=== PATIENT | male | born 1980 | race Caucasian/White ===

== ENCOUNTER 2025-04-22 19:18 | Emergency (ER) | payer MEDICAID, SELFPAY ==
--- OUTSIDE RECORDS SUMMARY | 2024-07-09 08:01 | XMS_ITS | Continuity of Care Document ---
Author Organization [facility] Address [address] [address] Phone Care Team Providers Care Instrumentation Designer Name Role Phone Eric Dacosta MD Unavailable [...] Procedures Procedure Date Home Visit E&m Estab Mod-md Video Visit [id number] Advance Directives Directive Yes / No Effective Date File Name No Information Encounters Encounter Description Practice Location Reason(s) For Visit Diagnoses Date Provider Providers Copied on Encounter Home Visit E&m Estab Mod-hi [facility], [address] [address], [place], [place], [id number] , [place] tel:[phone] [facility] [place] Detox f/u* (chief complaint) Moderate alcohol use disorderMethamphetami ne abuseMild major depressionPTSD (post-traumatic stress disorder)Elevated blood pressure reading 4 Olesya Reyes. [address], [place], [place], [id number] , [place]. tel: [phone] Video Visit [id number] [facility], [address], [place], [place], [id number] , [place] tel: [phone] [facility] [place] New RTC Admit* (chief complaint) Moderate alcohol use disorderMethamphetami ne abuseMild major depressionPTSD (post-traumatic stress disorder)Elevated blood pressure reading 4 Olesya Reyes. [address], [place], [place], [id number] , [place]. tel: [phone] Family History Family Member Type Diagnosis Age [...] Description: This patient is a resident of [facility] who was admitted for substance abuse [...] f/u* This patient is a resident of [facility] who was admitted for substance abuse [...] Admit* This patient is recently admitted to [facility] for treatment of substance abuse. This [...] Additional Infor mation D/C clonidine Related to [place] jaz blood pressure reading Transfer patient to a lower level of care tomorrowMay continue with current meds as listed Related to Moderate alcohol use disorder Clonidine prn Related to [place] jaz blood pressure reading Admit to [facility] for an observational detoxVital Signs per routine.CounselingRandom UDS 1-2 x a week prn. Fax copy of any positive results to office [phone]. Order void after 10 days. No confirmations [...]
[2025-04-22 19:27] VITALS: BP 135/73; PULSE 85; RESP 16; TEMP 36.8; O2SAT 95; BMI 25.7
--- NOTE | 2025-04-22 19:28 | ED.GENADULT ---
HPI - General Adult General Chief complaint: Neuro Symptoms/Deficit Stated complaint: lost prednisone prescription Time Seen by Provider: 04/22/25 19:36 Source: patient Mode of arrival: ambulatory Limitations: no limitations History of Present Illness ED Provider: Gail Gilliland NP HPI narrative: Patient is a 44-year-old male presents emergency department for evaluation. Reporting acute on chronic bilateral upper extremity nerve pain. Reports a history of cervical arthritis with radiculopathy, bilateral carpal tunnel. Has been dealing with these pains for approximately 10 years. Has previously had success with nitro modalities, particularly acupuncture but can not afford to do. He was recently seen at an urgent care on 04/14/2025 and states he was given a prescription for prednisone which was helping, however he was only able to take this for 1 day and then he lost the prescription. He reports going to [facility] after getting the prescription, was given referral for physical therapy which he is due to start soon. He is requesting a prescription for steroids as this has been beneficial for him in the past able to use will realistic modalities. He denies any recent precipitating injury that may have provoked the pain or made things worse. He additionally is requesting bilateral volar wrist splints as has lost his, and they are helpful at night. Related Data Previous Rx's ?Medication ?Instructions ?Recorded methylprednisolone 4 mg tablets in 4 mg PO DAILY #21 ea 04/22/25 a dose pack (Medrol (Tom)) Allergies Allergy/AdvReac Type Severity Reaction Status Date / Time No Known Allergies Allergy Verified 04/22/25 19:27 Review of Systems Review of Systems: Yes all other systems are reviewed and are negative PMFSH Past Medical History Attestation statement: The following information was validated with the patient. Source: old records reviewed Physical Exam ED Exam Exam: Appearance: Alert.?Oriented to person, place and time. No acute distress.?Normal affect. Neck: Normal inspection.? Neck supple.??No midline cervical spine tenderness, step-offs, deformities. No cervical adenopathy. Full range of motion. CVS: Heart sounds normal. Normal heart rate and rhythm.? Pulses normal.?? Respiratory: No respiratory distress.? Lung sounds clear to auscultation bilaterally?? Skin: Skin warm and dry.? Normal skin color.? Extremities: No extremity edema.? Positive Phalen sign bilaterally. Neuro: Moves all extremities spontaneously. Sensation intact bilaterally. No focal neuro deficits. Ambulates with normal steady gait. Vital Signs: Vital Signs - 24 hr 04/22/25 19:27 Temperature 98.2 F Pulse Rate 85 Respiratory Rate 16 Blood Pressure 135/73 Pulse Oximetry 95 Oxygen Delivery Method Room Air BMI result Body Mass Index 25.7 Medical Decision Making Medical Decision Making [facility] Narrative: Patient is a 44-year-old male presents emergency department for evaluation endorsing history of arthritis, radiculopathy, carpal tunnel, acute on chronic bilateral upper extremity ?nerve pain?, as per HPI. He feel strongly about receiving a prescription for oral corticosteroid as this is his proven beneficial to him in the past, unfortunately had loss of prescription that was given to him from urgent care recently by his account. He is not interested in any imaging modality, based on physical examination I do not feel as though there is emergent CT imaging or XR imaging required. Advised he should follow up outpatient with primary care provider, consider having EMG studies accordingly potentially seen and neck/back specialist, and physical therapy as already being coordinated from [facility]. He was given return precautions. All questions answered. Stable for discharge Differential Diagnosis Differential Diagnoses: The differential diagnosis associated with the presentation includes (Cervical radiculopathy, carpal tunnel syndrome, lateral epicondylitis, medial epicondylitis) External Record Review External record reviewed: Outpatient record Tests considered The following testing was considered but not selected: See narrative above Prescription Management I considered prescription management with: Other (Medrol Dosepak) Chronic Conditions Patient?s care impacted by: Other (See narrative above) Discharge Plan Discharge Clinical Impression: Cervical radiculopathy Carpal tunnel syndrome Qualifiers: Laterality: bilateral Qualified Code(s): G56.03 - Carpal tunnel syndrome, bilateral upper limbs Patient Disposition: Home, Self-Care Instructions: Cervical Radiculopathy (ED) Additional Instructions: Evaluated in the emergency department for complaints of nerve pain to the bilateral upper extremities, chronic in nature for you. Reported that you were recently given a steroid prescription unfortunately had lost this after 1 day of taking it. I will send a prescription for oral steroids to the pharmacy, please be certain that you do not wheezes, take daily with food to prevent stomach upset. It is not recommended to take [id number]-[id number] NSAIDs; ibuprofen/ Motrin/Advil, naproxen/Aleve, or aspirin while taking steroids as this can cause further stomach upset Follow-up outpatient with physical therapy as has been coordinated from [facility]. Establish local care with a new primary care provider. Prescriptions: New methylprednisolone [Medrol (Tom)] 4 mg tablets,dose pack 4 mg PO DAILY Qty: 21 0RF Referrals: [facility] Family Medicine [Provider Group, Family Practice] [facility] Primary Care, [place] [Provider Group, Internal Medicine] [facility] Primary Care, [place] [Provider Group, Internal Medicine] [facility] [Physician, Medical] Andreia Browne CNP [Primary Care Provider, Internal Medicine] Print Language: Albanian
[2025-04-22 20:01] VITALS: BP 135/73; PULSE 85; RESP 16; TEMP 36.8; O2SAT 95
--- OUTSIDE RECORDS SUMMARY | 2025-04-22 20:01 | XMS_ITS ---
Author Name [facility] Organization Unknown Results Test Name/Text Value Interpretation Date Range Source Anion Gap3 SerPl-sCnc 11.0 Normal 01/18/2024 7 - 17 [facility] Calcium SerPl-mCnc 8.9 mg/dL Normal 01/18/2024 8.8 - 10.2 [facility] HCO3 SerPl-sCnc 22.0 mmol/L Normal 01/18/2024 20 - 30 [facility] Potassium SerPl-sCnc 4.6 mmol/L Normal 01/18/2024 3.3 - 5 .3 [facility] GFR/BSA.pred SerPlBld BKD-BEL-CtWGjf >60.0 mL/min/1.73m2 Normal 01/18/2024 - [facility] Glucose SerPl-mCnc 132.0 mg/dL Above high normal 01/18/2024 70 - 100 [facility] Sodium SerPl-sCnc 137.0 mmol/L Normal 01/18/2024 136 - 14 4 [facility] BUN/Creat SerPl 23.6 Above high normal 01/18/2024 8 - 2 3 [facility] BUN SerPl-mCnc 25.0 mg/dL Above high normal 01/18/2024 6 - 2 0 [facility] Creat SerPl-mCnc 1.06 mg/dL Normal 01/18/2024 0.4 - 1.3 [facility] Chloride SerPl-sCnc 104.0 mmol/L Normal 01/18/2024 98 - 1 07 [facility] RDW RBC Auto-Rto 12.0 % Normal 01/18/2024 11 - 15 [facility] Monocytes/leuk NFr Bld Auto 8.4 % Normal 01/18/2024 4 - 12 [facility] nRBC/100 WBC Bld Auto-Rto 0.0 % Normal 01/18/2024 0 - 1 [facility] Hgb Bld-mCnc 15.3 g/dL Normal 01/18/2024 13.2 - 17.1 [facility] Eosinophil # Bld Auto 0.21 x 1000/uL Normal 01/18/2024 0 - 1 [facility] Monocytes # Bld Auto 0.5 x 1000/uL Normal 01/18/2024 0 - 1 [facility] nRBC # Bld Auto 0.0 x 1000/uL Normal 01/18/2024 0 - 1 [facility] Lymphocytes # Bld Auto 2.75 x 1000/uL Normal 01/18/2024 0 .6 - 3.7 [facility] Platelet # Bld Auto 261.0 x1000/uL Normal 01/18/2024 150 - 420 [facility] Imm Granulocytes # Bld Auto 0.01 x 1000/uL Normal 01/18/2024 0 - 0.3 [facility] Basophils/leuk NFr Bld Auto 0.3 % Normal 01/18/2024 0 - 1.4 [facility] Lymphocytes/leuk NFr Bld Auto 46.5 % Normal 01/18/2024 17 - 50 [facility] RBC # Bld Auto 4.75 M/uL Normal 01/18/2024 4 - 6 [facility] MCH RBC Qn Auto 32.2 pg Normal 01/18/2024 27 - 33 [facility] Imm Granulocytes/leuk NFr Bld Auto 0.2 % Normal 01/18/2024 0 - 1 [facility] Neutrophils # Bld Auto 2.43 x 1000/uL Normal 01/18/2024 2 - 7.6 [facility] Hct VFr Bld Auto 43.4 % Normal 01/18/2024 38.5 - 50 [facility] Neutrophils/leuk NFr Bld Auto 41.1 % Normal 01/18/2024 39 - 72 [facility] Eosinophil/leuk NFr Bld Auto 3.5 % Normal 01/18/2024 0 - 5 [facility] MCHC RBC Auto-mCnc 35.3 g/dL Normal 01/18/2024 31 - 36 [facility] Basophils # Bld Auto 0.02 x 1000/uL Normal 01/18/2024 0 - 1 [facility] MCV RBC Auto 91.4 fL Normal 01/18/2024 80 - 100 [facility] T WBC # Bld Auto 5.9 x1000/uL Normal 01/18/2024 4 - 11 [facility] PMV Bld Auto 10.6 fL Normal 01/18/2024 8 - 12 [facility] T LDL Note See Note Normal 07/21/2023 [facility] CHOLESTEROL.IN LDL:MCNC:PT:SER/PLAS:Q N:CALCULATED 194.0 mg/dL Above high normal 07/21/2023 - [facility] CHOLESTEROL.IN HDL:MCNC:PT:SER/PLAS:Q N: 78.0 mg/dL Normal 07/21/2023 - [facility] TRIGLYCERIDE:MCNC:PT:S ER/PLAS:QN: 156.0 mg/dL Above high normal 07/21/2023 - [facility] CHOLESTEROL:MCNC:PT:SE R/PLAS:QN: 303.0 mg/dL Above high normal 07/21/2023 - [facility] eGFR CKD-EPI 2020 101.0 mL/min/1.73 m2 Normal 07/21/2023 - [facility] ANION GAP 3:SCNC:PT:SER/PLAS:QN: 16.0 mmol/L Normal 07/21/2023 10 - 19 [facility] BICARBONATE:SCNC:PT:SE R/PLAS:QN: 23.0 mmol/L Normal 07/21/2023 22 - 29 [facility] POTASSIUM:SCNC:PT:SER/ PLAS:QN: 4.7 mmol/L Normal 07/21/2023 3.5 - 5.3 [facility] ALBUMIN:MCNC:PT:SER/PL :QN:BCG 4.9 g/dL Normal 07/21/2023 3.7 - 5.1 [facility] UREA NITROGEN:MCNC:PT:SER/P LAS:QN: 13.0 mg/dL Normal 07/21/2023 6 - 23 [facility] BILIRUBIN:MCNC:PT:SER/ PLAS:QN: 0.5 mg/dL Normal 07/21/2023 0 - 1.2 [facility] PROTEIN:MCNC:PT:SER/PL :QN: 7.1 g/dL Normal 07/21/2023 6.3 - 7.9 [facility] CREATININE:MCNC:PT:SER /PLAS:QN: 0.97 mg/dL Normal 07/21/2023 0.67 - 1.23 [facility] ALBUMIN/GLOBULIN:MRTO: PT:SER/PLAS:QN: 2.2 Normal 07/21/2023 1.1 - 2.5 [facility] ASPARTATE AMINOTRANSFERASE:CCNC: PT:SER/PLAS:QN:WITH P-5'-P 24.0 U/L Normal 07/21/2023 10 - 50 [facility] ALKALINE PHOSPHATASE:CCNC:PT:SE R/PLAS:QN: 91.0 U/L Normal 07/21/2023 40 - 130 [facility] GLUCOSE:MCNC:PT:SER/PL :QN: 103.0 mg/dL Above high normal 07/21/2023 70 - 99 [facility] GLOBULIN:MCNC:PT:SER:Q N:CALCULATED 2.2 g/dL Normal 07/21/2023 1.8 - 3.4 [facility] CALCIUM:MCNC:PT:SER/PL :QN: 9.9 mg/dL Normal 07/21/2023 8.6 - 10.4 [facility] SODIUM:SCNC:PT:SER/CORBY S:QN: 140.0 mmol/L Normal 07/21/2023 135 - 145 [facility] CHLORIDE:SCNC:PT:SER/P LAS:QN: 101.0 mmol/L Normal 07/21/2023 97 - 107 [facility] ALANINE AMINOTRANSFERASE:CCNC: PT:SER/PLAS:QN:WITH P-5'-P 33.0 U/L Normal 07/21/2023 10 - 62 [facility] ERYTHROCYTES.NUCLEATED /100 LEUKOCYTES:RATIO:PT:BL D:QN:AUTOMATED COUNT 0.0 /100(WBCs) Normal 07/21/2023 [facility] LYMPHOCYTES/100 LEUKOCYTES:NFR:PT:BLD: QN:AUTOMATED COUNT 39.3 % Normal 07/21/2023 20 - 45 [facility] MONOCYTES/100 LEUKOCYTES:NFR:PT:BLD: QN:AUTOMATED COUNT 7.0 % Normal 07/21/2023 4 - 12 [facility] GRANULOCYTES.IMMATURE/ 100 LEUKOCYTES:NFR:PT:BLD: QN:AUTOMATED COUNT 0.2 % Normal 07/21/2023 0 - 1 [facility] MONOCYTES:NCNC:PT:BLD: QN:AUTOMATED COUNT 0.36 x10(9)/L Normal 07/21/2023 0 - 1 [facility] BASOPHILS/100 LEUKOCYTES:NFR:PT:BLD: QN:AUTOMATED COUNT 0.6 % Normal 07/21/2023 0 - 2 [facility] BASOPHILS:NCNC:PT:BLD: QN:AUTOMATED COUNT 0.03 x10(9)/L Normal 07/21/2023 0 - 0.2 [facility] GRANULOCYTES.IMMATURE: NCNC:PT:BLD:QN:AUTOMAT ED COUNT 0.01 x10(9)/L Normal 07/21/2023 0 - 0.1 [facility] EOSINOPHILS:NCNC:PT:BL D:QN:AUTOMATED COUNT 0.14 x10(9)/L Normal 07/21/2023 0 - 0.5 [facility] NEUTROPHILS:NCNC:PT:BL D:QN:AUTOMATED COUNT 2.58 x10(9)/L Normal 07/21/2023 2 - 7.5 [facility] LYMPHOCYTES:NCNC:PT:BL D:QN:AUTOMATED COUNT 2.02 x10(9)/L Normal 07/21/2023 1 - 4 [facility] EOSINOPHILS/100 LEUKOCYTES:NFR:PT:BLD: QN:AUTOMATED COUNT 2.7 % Normal 07/21/2023 0 - 7 [facility] NEUTROPHILS/100 LEUKOCYTES:NFR:PT:BLD: QN:AUTOMATED COUNT 50.2 % Normal 07/21/2023 40 - 75 [facility] ERYTHROCYTE MEAN CORPUSCULAR HEMOGLOBIN CONCENTRATION:MCNC:PT: RBC:QN:AUTOMATED COUNT 35.9 g/dL Normal 07/21/2023 31 - 36 [facility] LEUKOCYTES:NCNC:PT:BLD :QN:AUTOMATED COUNT 5.1 x10(9)/L Normal 07/21/2023 3.5 - 10 [facility] HEMATOCRIT:VFR:PT:BLD: QN:AUTOMATED COUNT 48.5 % Normal 07/21/2023 38 - 50 [facility] ERYTHROCYTE MEAN CORPUSCULAR VOLUME:ENTVOL:PT:RBC:Q N:AUTOMATED COUNT 90.3 fL Normal 07/21/2023 80 - 99 [facility] ERYTHROCYTE DISTRIBUTION WIDTH:RATIO:PT:RBC:QN: AUTOMATED COUNT 12.7 % Normal 07/21/2023 11.5 - 15 [facility] ERYTHROCYTE MEAN CORPUSCULAR HEMOGLOBIN:ENTMASS:PT: RBC:QN:AUTOMATED COUNT 32.4 pg Normal 07/21/2023 25 - 34 [facility] PLATELETS:NCNC:PT:BLD: QN:AUTOMATED COUNT 247.0 x10(9)/L Normal 07/21/2023 150 - 400 [facility] ERYTHROCYTE DISTRIBUTION WIDTH:ENTVOL:PT:RBC:QN :AUTOMATED COUNT 41.1 fL Normal 07/21/2023 35 - 47 [facility] HEMOGLOBIN:MCNC:PT:BLD :QN: 17.4 g/dL Above high normal 07/21/2023 13.5 - 17 [facility] PLATELET MEAN VOLUME:ENTVOL:PT:BLD:Q N:AUTOMATED COUNT 10.0 fL Normal 07/21/2023 9.3 - 13 [facility] ERYTHROCYTES:NCNC:PT:B LD:QN:AUTOMATED COUNT 5.37 x10(12)/L Normal 07/21/2023 4.3 - 5.7 [facility] N History of Medication Use Medication Directions Dispensed Refills Start Date End Date Stat us No Known Medications No Known Medications 07/16/2023 completed Problems Problem Status Onset Date Problem Type Date of Resoluti on Source Puncture wound of right thumb, initial encounter active EncounterDiagnosisAct H HCCT Immunizations Vaccine Date Source Lot Number Status Tdap 11/24/2023 [facility] [id number] completed Encounters Encounter Type Encounter Reason Primary Diagnosis Location Date Emergency Injury, other and unspecified, finger Injury, other and unspecified, finger [facility] 01/27/2024 Emergency Cervicalgia Cervicalgia [facility] 01/17/2024 Ambulatory Puncture wound without foreign body of right thumb without damage to nail, initial encounter Puncture wound without foreign body of right thumb without damage to nail, initial encounter [facility] 11/24/2023 Ambulatory new pt per Dr. Mane [facility] 08/06/2023 Emergency Unspecified asthma with (acute) exacerbation Unspecified asthma with (acute) exacerbation [facility] 08/03/[address] [facility] 07/21/2023 Ambulatory EST CARE UNAWARE OF ANY UNDERLYING HEALTH CONDITIONS [facility] 07/16/2023 Care Team Organization Name Specialty Phone Email Start Date End [facility] 02/01/2025 [facility] 12/08/2024 03/05/20 [facility] 01/19/2024 02/23/2024 [facility] 01/18/20 24 02/25/2024 [facility] 01/18/20 [facility] PCP [facility] [facility] 11/24/2023 12/07/2024 [facility] 08/23/2023 [facility] 08/03/2023 01/25/2025 [facility] 08/03/2023 08/03/2023 [facility] 07/21/2001/11/2025 [facility] 07/17/2023 [facility] Primary Care 07/16/2023 07/16/20 [facility] 07/15/2023 07/16/[address] [facility] NO PCP Primary Care 02/20/2023 02/20/2023
--- OUTSIDE RECORDS SUMMARY | 2025-04-22 20:01 | XMS_ITS | Clinical Summary ---
Author Organization [facility] [address] ity Address [address] [place] [address] Care Team Providers Care Kiln Transfer Operator Name Role Phone Unavailable Primary Care Provider Unavailabl e Social History Tobacco Use Types Packs/Day Years Used Date Smoking Tobacco: Never Assessed Sex and Gender Information Value Date Recorded Sex Assigned at Not on file Legal Sex Male 9:00 PM EST Gender Identity Not on file Sexual Orientation Not on file Obstetrics History Plan of Treatment Health Maintenance Due Date Last Done Comments DTaP,Tdap,and Td Vaccines (1 - Tdap) 2000 Hepatitis B Vaccines (1 of 3 - 19+ 3-dose series) 2000 Cholesterol Screening (Lipid Panel) 10/16/2023 HIV Screening 10/16/2023 Hepatitis C Screening 10/16/2023 Social Influencers of Health Screening 10/16/2023 COVID-19 Vaccine ( - 2023-2 5 season) 2024 Depression Screening 09/21/2024 Influenza Vaccine (#1) 2025 HIB Vaccines Aged Out No longer eligi ble based on patient's age to complete this topic HPV Vaccines Aged Out No longer eligi ble based on patient's age to complete this topic Hepatitis A Vaccines Aged Out No long er eligible based on patient's age to complete this topic IPV Vaccines Aged Out No longer eligi ble based on patient's age to complete this topic MMR Vaccines Aged Out No longer eligi ble based on patient's age to complete this topic Meningococcal ACWY Vaccine Aged Out N o longer eligible based on patient's age to complete this topic Meningococcal B Vaccine Aged Out No l onger eligible based on patient's age to complete this topic Pneumococcal Vaccine: Pediat rics (0 to 5 Years) and At-Risk Patients (6 to 49 Years) Aged Out No longer eligible b ased on patient's age to complete this topic RSV Immunization Patients Un artie 20 months Aged Out No longer eligible b ased on patient's age to complete this topic Varicella Vaccines Aged Out No longer eligible based on patient's age to complete this topic
--- OUTSIDE RECORDS SUMMARY | 2025-04-22 20:01 | XMS_ITS | Clinical Summary ---
Author Organization [facility] Address [address] [place] [address] Care Team Providers Care Joint Runner Name Role Phone Unavailable Primary Care Provider Unavailabl e Medications Medication Sig Dispensed Refills Start Date End Date Status albuterol 108 (90 Base) MCG/ACT inhaler Inhale 2 puffs into the lungs every 6 (six) hours as needed. 8 g 0 08/03/2023 Active guaiFENesin (ROBITUSSIN) 100 MG/5ML liquid Take 10 mL (200 mg total) by mouth 3 (three) times a day as needed for cough. 120 mL 0 08/03/2023 Active Social History Tobacco Use Types Packs/Day Years Used Date Smoking Tobacco: Never Assessed Sex and Gender Information Value Date Recorded Sex Assigned at Not on file Gender Identity Not on file Sexual Orientation Not on file Job Start Date Occupation Industry Not on file Not on file Not on file Last Filed Vital Signs Vital Sign Reading Time Taken Comments Blood Pressure 121/83 08/03/2023 4:30 AM EST Pulse 114 08/03/2023 4:30 AM EST Temperature 36.6 C (97.8 F) 08/03/2023 4:30 AM EST Respiratory Rate 17 08/03/2023 4:30 AM EST Oxygen Saturation 97% 08/03/2023 4:30 AM EST Inhaled Oxygen Concentration - - Weight - - Height - - Body Mass Index - - Plan of Treatment Health Maintenance Due Date Last Done Comments Hepatitis B Vaccines (1 of 3 - 3-dose series) 1981 Hepatitis C Screening 1981 COVID-19 Vaccine (#1) 03/07/1982 Depression Screening 1993 Preventative Health Evaluation 1999 Influenza Vaccine (#1) 2025 DTap / Tdap / Td (2 - Td or Tdap) 10/28/2025 016 Pneumococcal Vaccine Aged Out No long er eligible based on patient's age to complete this topic RSV Ped < 20 months Aged Out No longe r eligible based on patient's age to complete this topic
--- OUTSIDE RECORDS SUMMARY | 2025-04-22 20:01 | XMS_ITS | Clinical Summary ---
Author Organization [facility] [address] [facility] Address [address] [place] [phone] Phone Care Team Providers Care Casino Duty Manager Name Role Phone Pcp, Does Not Have A Primary Care Provider Unava ilable Allergies No known active allergies Medications chlorzoxazone (LORZONE) 750 mg Tab Take 750 mg by mouth 3 (three) times daily. 90 tablet 3 6 Active albuterol (PROVENTIL HFA) 90 mcg/actuation HFA inhaler Inhale 2 puffs into the lungs every 4 (four) hours as needed for Wheezing. 1 Inhaler 6 Active predniSONE (DELTASONE) 20 MG tablet Take 3 tabs ( 60 ) mg every morning for the next 5 days 15 tablet 6 Active azithromycin (ZITHROMAX Z-DUSTIN) 250 MG Tab Take 2 tabs today and 1 tab for the next 4 days 6 each 6 Active umeclidinium-vi lanterol 62.5-25 mcg/actuation DsDv Inhale 1 Inhaler into the lungs daily. 60 each 4 6 Active PROAIR RESPICLICK 90 mcg/actuation Inhale 2 puffs into the lungs every 4 (four) hours. 1 each 5 6 Active albuterol (PROVENTIL HFA) 90 mcg/actuation HFA inhaler Inhale 2 puffs into the lungs every 6 (six) hours as needed for Wheezing. 1 Inhaler 11 6 Active VENTOLIN HFA 90 mcg/actuation HFAA Inhale 2 puffs into the lungs every 4 (four) hours as needed. 18 g 4 6 Active oxyCODONE-aceta minophen (PERCOCET) 5-325 mg per tablet Take 1 tablet by mouth every 4 (four) hours as needed for pain (moderate/sever e pain) for up to 2 doses. Dispensed from Emergency Department 2 tablet 4 Active ibuprofen (ADVIL,MOTRIN) 600 mg tablet Take 1 tablet (600 mg total) by mouth every 6 (six) hours as needed for pain. 60 tablet 4 Active acetaminophen (TYLENOL) 325 mg tablet Take 2 tablets (650 mg total) by mouth every 6 (six) hours as needed for pain. 30 tablet 4 Active Immunizations Immunization Administration Dates Next Due Tdap 10/28/2015 Social History Tobacco Use Types Packs/Day Years Used Date Smoking Tobacco: Never Tobacco Cessation:Counseling Given: Not Answered Interpersonal Safety Answer Date Record ed Is there anyone in your life that is hurting or threatening you in anyway? no 01/27/2024 Physical Indicators of Abuse No evidence of phys ical abuse 01/27/2024 Sex and Gender Information Value Date Recorded Sex Assigned at Not on file Legal Sex Male 12:17 AM EST Gender Identity Not on file Sexual Orientation Not on file Last Filed Vital Signs Vital Sign Reading Time Taken Comments Blood Pressure 168/108 01/27/2024 9:15 AM EDT Pulse 94 01/27/2024 9:15 AM EDT Temperature 36.1 C (96.9 F) 01/27/2024 9:15 AM EDT Respiratory Rate 17 01/27/2024 9:15 AM EDT Oxygen Saturation 94% 01/27/2024 9:15 AM EDT Inhaled Oxygen Concentration - - Weight 95.3 kg (210 lb 1.6 oz) 02/03/2024 12:07 PM EDT Height 154.9 cm (5' 1 ) 02/03/2024 12:07 PM EDT Body Mass Index 39.7 02/03/2024 12:07 PM EDT Plan of Treatment Health Maintenance Due Date Last Done Comments HIV screening 1994 Hepatitis C screening 1999 Lipid disorder screening 2021 Covid-19 vaccine series (1 - 2024-25 season) 2024 Influenza vaccine 05/22/2025 Tetanus adult (Td q 10,TDAP once) 11/23/2033 11/24/2023, 10/28/2015 RSV Immunization (1 - 1-dose 75+ series) 2056 Meningococcal Vaccine Aged Out No karla marisol eligible based on patient's age to complete this topic Pneumococcal Vaccine (2 - 49 years) Aged Out No longer eligible b ased on patient's age to complete this topic [place] [employer] COMP GENERIC [place] [employer] COMP GENERIC Care Teams Casino Duty Manager Relationship Specialty Start Date End Date Pcp, Does Not Have A PCP - General 07/22/16
--- OUTSIDE RECORDS SUMMARY | 2025-04-22 20:01 | XMS_ITS | Clinical Summary ---
Author Organization [employer] Address [address] [facility] [address] [place] [address] Care Team Providers Care Pulverizer Name Role Phone Unavailable Primary Care Provider Unavailabl e Allergies No known active allergies Medications amoxicillin-clav ulanate (Augmentin) 875-125 MG tablet Take 1 tablet by mouth 2 times daily. 20 tablet 11/03/2024 Active Social History Tobacco Use Types Packs/Day Years Used Date Smoking Tobacco: Never Assessed Sex and Gender Information Value Date Recorded Sex Assigned at Male 10/19/2024 3:33 PM EST Legal Sex Male 3:32 PM EST Gender Identity Male 10/19/2024 3:33 PM EST Sexual Orientation Don't know 11/03/2024 8: 30 AM EST Plan of Treatment Health Maintenance Due Date Last Done Comments Dental Oral Exam 1981 Dental Prophylaxis 1981 Dental X-Ray: Bitewings 1981 Dental X-Ray: Full Mouth 1981 Depression Screening 1981 HIV Screening 1981 Lipid Panel 1981 SDOH Screening 1981 Disability Screening 1981 Alcohol/Substance Use Screening 1993 Tobacco Screening 1993 Family Planning (PISQ) 1996 HPV Vaccines (1 - Male 3-dos e series) 1996 Hepatitis C Screening 1999 Hepatitis B Vaccines (1 of 3 - 19+ 3-dose series) 2000 COVID-19 Vaccine ( - 2023-2 5 season) 2024 Influenza Vaccine (#1) 2025 DTaP/Tdap/Td Vaccines (2 - T d or Tdap) 10/28/2025 10/28/2015 Zoster Vaccines (1 of 2) 2031 RSV Patients and Pa tients Aged 60 years or older (1 - 1-dose 75+ series) 2056 HIB Vaccines Aged Out No longer eligi [...] patient's age to complete this topic Meningococcal Vaccine Aged Out No karla marisol eligible based on patient's age to complete this topic Pneumococcal Vaccine: Pediat rics (0 to 5 Years) and At-Risk Patients (6 to 49) Years Aged Out No longer eligi ble based on patient's age to complete this topic RSV under 20 months Aged Out No longe r eligible based on patient's age to complete this topic Rotavirus Vaccines Aged Out No longer eligible based on patient's age to complete this topic Insurance [facility] [address] [place] [address] C3 [facility] MEDICAID STAND ADULT
== END 2025-04-22 20:02 | disposition home or self-care (01) ==
LOC: HO.ED 19:59
PROVIDERS: Emergency Provider Emergency Medicine; PCP Nurse Practitioner Family
DX: M54.12 Radiculopathy, cervical region (principal)
CPT/HCPCS: 99283

== ENCOUNTER 2025-09-02 13:27 | Emergency (ER) | payer MEDICAID, SELFPAY ==
--- OUTSIDE RECORDS SUMMARY | 2024-07-09 07:01 | XMS_ITS | Continuity of Care Document ---
Author Organization [facility] Address [address] [address] Phone Care Team Providers Care Loss Prevention Guard Name Role Phone Eric Dacosta MD Unavailable Unavailable Medications Medication Instructions Dosage Effective Dates (start - stop) Status Comments melatonin 5 mg capsule take 1 tablet by oral route every bedtime 1 tablet - Active doxepin 25 mg capsule take 1 capsule by oral route every day at bedtime 25 MG - Active hydroxyzine pamoate 50 mg capsule take 1 capsule by oral route every 6 hrs as needed anxiety. - Active Lexapro 5 mg tablet take 0.5 tablet by oral route every other day - Active ondansetron HCl 4 mg tablet take 1 Tablet by oral route every 6 hours as needed for nausea 4 MG - No Longer Active clonidine HCl 0.1 mg tablet take 1 tablet by oral route every 6 hours as needed for diastolic BP > 90 0.1 MG - No Longer Active corrected instructions Procedures Procedure Date Home Visit E&m Estab Mod-or Video Visit [id number] Advance Directives Directive Yes / No Effective Date File Name No Information Encounters Encounter Description Practice Location Reason(s) For Visit Diagnoses Date Provider Providers Copied on Encounter Home Visit E&m Estab Mod-hi [facility], [address] [address], [place], [place], [id number] , [place] tel:[phone] Warren Palmer [facility] [place] Detox f/u* (chief complaint) Moderate alcohol use disorderMethamphetami ne abuseMild major depressionPTSD (post-traumatic stress disorder)Elevated blood pressure reading [address], [place], [place], [id number] , [place]. tel: [phone] Video Visit [id number] [facility], [address], [place], [place], [id number] , [place] tel: [phone] Warren Palmer [place] [facility] [place] New RTC Admit* (chief complaint) Moderate alcohol use disorderMethamphetami ne abuseMild major depressionPTSD (post-traumatic stress disorder)Elevated blood pressure reading 4 Olesya Reyes. [address], [place], [place], [id number] , [place]. tel: [phone] Family History Family Member Type Diagnosis Age At Onset No Information Payers Payer name Insurance type Covered republican ID Authoriza tion(s) No Information Social History Type Description Quantity Date Captured Comments Alcohol Use Details Unknown Caffeine Use Details Unknown Tobacco Use Status No Information Smoking Status No Information Sex Male Vital Signs Date / Time: Height Weight BMI Pulse Rate Blood Pressure Temperature Respiratory Rate Body Surface Area Head Circumference Head Circ. Percentile Wt./Brandon. Percentile BMI percentile Pulse Ox Inhaled Ox 12:03 PM 71.00 in 90.265 kg (199.00 lbs) 27.7 5 kg/m eter (2) 65 /min 114/86 mm[Hg] 17 /min Chief Complaint And Reason For Visit From encounter dated '07/09/2024 12:01'. Detox f/u* (chief complaint). Description: This patient is a resident of [facility] who was admitted for substance abuse detoxification.This is Detox Day #2Currently on a Valium or Buprenorphine taper protocolSlept good last night.Appetite is fair. Does intermittent fasting. Fasts 17 hrs from 7 pm to 12 pm sometimes. Anxiety is currently a level 1No nausea, sweats, chills, shakes. Had been sober since May 22, but relapsed 2 days ago for one day. Reason For Referral Reason For Referral No Information Plan Of Treatment Date Type Action Status Goal H&P. Due on due Goal Hepatitis C screening. Due o n due Goal Unhealthy drug use screening . Due on due Goal H&P. Due on due Goal Hepatitis C screening. Due o n due Goal Unhealthy drug use screening . Due on due History Of Present Illness Encounter Date Complaint History Of Prese nt Illness Detox f/u* This patient is a resident of [facility] who was admitted for substance abuse detoxification.This is Detox Day #2Currently on a Valium or Buprenorphine taper protocolSlept good last night.Appetite is fair. Does intermittent fasting. Fasts 17 hrs from 7 pm to 12 pm sometimes. Anxiety is currently a level 1No nausea, sweats, chills, shakes. Had been sober since May 22, but relapsed 2 days ago for one day. New RTC Admit* This patient is recently admitted to [facility] for treatment of substance abuse. This patient has a history of alcohol use since age 26 yrs old. This became a problem immediately. He has been through several treatment centers. He had been sober since May 22 of this year, but relapsed yesterday. He had about 5 drinks total last night ( 2 glasses of wine, 1 twisted tea and two other drinks). Also admtis to smoking a fewl hits of methamphetamne yesterday. Normally does not use methamphetamines.Denies h/o seizures.Denies psyche issues: recently diagnosed with possible Major Depression Disorder and PTSD. Started on Lexapro one mth ago, but now has been weaning off takien 1/2 of a Lexpro 10 mg every other day.Withdrawal symptoms: nonePrior treatments: Multiple . 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 Fax copy of any positive results to office [phone]. Order void after 10 days. No confirmations on negative test results. RTO x 3-4 days.Recommend MAT after detox.Call me prn CIWA >20 or COWS>30Patient meets ASAM criteria and is certified today for a Subacute Detox level of care. Will re-evaluate tomorrow.Comfort meds Related to Moderate alcohol use disorder Assessments Type Assessment Date assessment Moderate alcohol use disorder Oc assessment Methamphetamine abuse assessment Mild major depression assessment PTSD (post-traumatic stress diso rder) assessment Elevated blood pressure reading impression completing observational detox O impression doing well impression stable impression resolved Patient Care Teams Name Effective Dates (start - stop) Status Members No Information
--- NOTE | ~2025-09-02 | XR_ITS ---
CLINICAL HISTORY: injury to left index, with lac, rule out open fx --- Additional Notes or Special Instructions: INDEX 2 views left 2nd finger Comparison: None Findings: No fractures or dislocations. No significant arthritic change. No erosions. Evaluation for foreign body is limited by overlying bandage material. A questionable 2 x 1 mm linear radiodensity within the soft tissues of the volar aspect at the level of the middle phalanx may be present, seen on the lateral image only. Impression: 1. Possible small foreign body or artifact as described above. No fracture or dislocation. This document has been electronically signed by: Chauncey Benitez MD on 09/02/2025 14:32:53
[2025-09-02 13:50] VITALS: BP 143/70; PULSE 89; RESP 16; TEMP 36.3; O2SAT 96; BMI 24.2
--- NOTE | 2025-09-02 13:51 | ED.WOUNDLAC ---
HPI - Wound/Laceration General Chief Complaint: Wound/Laceration Stated Complaint: finger lac Time Seen by Provider: 09/02/25 20:18 Related Data Previous Rx's ?Medication ?Instructions ?Recorded methylprednisolone 4 mg tablets in 4 mg PO DAILY #21 ea 04/22/25 a dose pack (Medrol (Tom)) dexamethasone 4 mg tablet 4 mg PO DAILY #4 tabs 04/24/25 Allergies Allergy/AdvReac Type Severity Reaction Status Date / Time No Known Allergies Allergy Verified 09/02/25 13:52 [facility] Social History Social History Advance Directives: No Advance Directives Information Provided: No Do you have a plan to hurt others: No Plan Physical Exam Vital Signs: Vital Signs: Last Vital Signs Temp 98.2 F 09/02/25 18:00 Pulse 91 09/02/25 18:00 Resp 16 09/02/25 13:50 BP 133/80 09/02/25 18:00 Pulse Ox 99 09/02/25 18:00 O2 Del Method Room Air 09/02/25 18:00 BMI result Body Mass Index 24.2 Course Course Course Narrative: This is a RME preformed in triage by Josefina Sood PA-C. Date:09/02/2025, time 153 pm. Patient presents with laceration left index finger. fell a step down off ladder, not work related. Right hand dominant PE: deep lac over volar left index PIP 2cm in length, vannot rule out vessel injury, full ROM, compression dressing placed Work UP: needs suturing. TD is already utd., Xr left finger Will defer full ROS and PE to treating provider. Patient will continued to be monitored in the interim. Reevaluation(s) Reevaluation #1: I came into shift at 8:00 p.m., the patient had been on the board for over 6 hours. A critical patient, with postmenopausal heavy bleeding required assessment first. I performed a pelvic, I required consultation with Gynecology, the patient was aware, he left without completing treatment. He is very displeased over his wait time. Time: 21:45 Reevaluation #2: The above reevaluation does not fit for this patient. Medications Administered Discontinued Medications Generic Name Dose Route Start Last Admin Trade Name Freq PRN Reason Stop Dose Admin Lidocaine/Epinephrine 10 ml 09/02/25 20:19 09/02/25 20:37 Lidocaine Hcl 1%/Epi 1:100,000 10 Ml Vial INFILTRATI 09/02/25 20:20 10 ml ONCE ONE Administration Discharge Plan Discharge Clinical Impression: Laceration of left index finger Patient Disposition: Left W/O Completing Treatment Prescriptions: No Action methylprednisolone [Medrol (Tom)] 4 mg tablets,dose pack 4 mg PO DAILY Qty: 21 0RF dexamethasone 4 mg tablet 4 mg PO DAILY Qty: 4 0RF Discharge Date/Time: 09/02/25 23:00
[2025-09-02 18:00] VITALS: BP 133/80; PULSE 91; TEMP 36.8; O2SAT 99
--- OUTSIDE RECORDS SUMMARY | 2025-09-02 18:44 | XMS_ITS | Clinical Summary ---
Author Organization [facility] Prior to 02/18/25 Address [address] [place] [address] Care Team Providers Care Primary Special Educator Name Role Phone Unavailable Primary Care Provider [...]
--- OUTSIDE RECORDS SUMMARY | 2025-09-02 18:44 | XMS_ITS | Clinical Summary ---
Author Organization [employer] Address [address] [facility] [address] [place] [address] Care Team Providers Care Matlab Developer Name Role Phone Unavailable Primary Care Provider [...] Dental Prophylaxis 1981 Dental X-Ray: Bitewings 1981 Depression Screening 1981 HIV Screening 1981 Lipid Panel 1981 SDOH Screening 1981 Disability Screening 1981 Alcohol/Substance Use Screening 1993 Tobacco Screening 1993 Family Planning (PISQ) 1996 HPV Vaccines (1 - Male 3-dos e series) 1996 Hepatitis C Screening 1999 Hepatitis B Vaccines (1 of 3 - 19+ 3-dose series) 2000 COVID-19 Vaccine (1 - 2024-2 6 season) 2025 Influenza Vaccine (#1) 2025 DTaP/Tdap/Td Vaccines (2 - T d or Tdap) 10/28/2025 10/28/2015 Dental X-Ray: Full Mouth 10/21/2027 10/20/2024 Zoster Vaccines (1 of 2) 2031 RSV [...] patient's age to complete this topic Insurance [facility] C[address] [facility] C3 [facility] MEDICAID STAND ADULT
--- OUTSIDE RECORDS SUMMARY | 2025-09-02 18:44 | XMS_ITS | Clinical Summary ---
Author Organization [facility] [address] [facility] Address [address] [place] [phone] Phone Care Team Providers Care Benefits Specialist Recruiter Name Role Phone Pcp, Does Not Have [...] C screening 1999 Lipid disorder screening 2021 Influenza vaccine 04/21/2025 Covid-19 vaccine series ( season) 2025 Tetanus adult (Td q 10,TDAP once) 11/23/2033 11/24/2023, 10/28/2015 RSV Immunization (1 - 1-dose 75+ series) 2056 Meningococcal B Vaccine Aged Out No l [...] [place] [employer] COMP GENERIC [place] [employer] COMP GENERIC Care Teams Benefits Specialist Recruiter Relationship Specialty Start Date End Date Pcp, Does Not Have A PCP - General 07/22/16
--- OUTSIDE RECORDS SUMMARY | 2025-09-02 18:44 | XMS_ITS | Clinical Summary ---
Author Organization [facility] ity Address [address] [place] [address] Care Team Providers Care Test Borer Name Role Phone Unavailable Primary Care Provider Unavailabl e Social History Tobacco Use Types Packs/Day Years Used Date Smoking Tobacco: Never Assessed Sex and Gender Information Value Date Recorded Sex Assigned at Not on file Legal Sex Male 9:00 PM EST Gender Identity Not on file Sexual Orientation Not on file Plan of Treatment Health Maintenance Due Date Last Done Comments DTaP,Tdap,and Td Vaccines (1 - Tdap) 2000 Hepatitis B Vaccines (1 of 3 - 19+ 3-dose series) 2000 HPV Vaccines (1 - 3-dose SCD M series) 2008 Cholesterol Screening (Lipid Panel) 10/16/2023 HIV Screening 10/16/2023 Hepatitis C Screening 10/16/2023 Social Influencers of Health Screening 10/16/2023 Depression Screening 09/21/2024 COVID-19 Vaccine (1 - 2024-2 6 season) 2025 Influenza Vaccine (#1) 2025 RSV Immunization Adult Patie nts (1 - 1-dose 75+ series) 2056 HIB [...]
--- OUTSIDE RECORDS SUMMARY | 2025-09-02 18:44 | XMS_ITS | Encounter Summary ---
Author Organization [facility] Address [address] [place] [address] Care Team Providers Care Government Relations Director Name Role Phone Pcp, Does Not Have A Primary Care Provider Unava ilable Encounter Details Date Type Department Care Team (Late st Contact Info) Description 05/05/2019 Abstract [facility] [address] [place], [place] [id number] Alexa Schaeffer, DDS [address] [place] [id number] Social History Tobacco Use Types Packs/Day Years Used Date Smoking Tobacco: Never Assessed Sex and Gender Information Value Date Recorded Sex Assigned at Not on file Legal Sex Male 12:17 AM EST Gender Identity Not on file Sexual Orientation Not on file documented as of this encounter Plan of Treatment Not on file documented as of this encounter Visit Diagnoses Not on filedocumented in this encounter Care Teams Government Relations Director Relationship Specialty Start Date End Date Pcp, Does Not Have A PCP - General 07/22/16 documented as of this encounter
[2025-09-02] MEDS: Lidocaine HCl 1%/Epi 1:100,000 10 ML VIAL INFILTRATI (20:37)
--- NOTE | 2025-09-02 20:43 | PC.NURSE ---
Back documentation This nurse assumed care of this pt.PT out in [facility] yelling I've been here for 6 hours i lost so much blood! Laceration on left middle finger bleeding controlled. Patient updated that provider will see him shortly. PT Lac cleaned.
--- NOTE | 2025-09-02 21:41 | PC.NURSE ---
Back documentation Provider notified of patient frustration, provider currently busy with another patient,pipe manufacture supervisor with this author at pt bedside so pt can relay his frustrations and complaints. pt asked Well can i just get prednisone and a referral to Neuro so we can make it even since i waited here for 6 hours. this nurse explained that providing prescriptions are not within nurses scope of practice & that i relayed that he wanted to see provider urgently.
--- NOTE | 2025-09-02 21:49 | PC.NURSE ---
Back documentation pt stated I'm leaving and never coming back again I hate this hospital! Provider and food supervisor RN notified.
--- NOTE | 2025-09-02 21:52 | PC.NURSE ---
Back documentation Pt stated he was hungry and hasn't eaten all day this author provided pt with food.
== END 2025-09-02 23:00 | disposition left against medical advice (07) ==
PROVIDERS: Emergency Provider Emergency Medicine
DX: S61.211A Laceration without foreign body of left index finger without damage to nail, initial encounter (principal); M79.642 Pain in left hand; W26.9XXA Contact with unspecified sharp object(s), initial encounter; Y93.9 Activity, unspecified; Y92.9 Unspecified place or not applicable; Y99.8 Other external cause status
CPT/HCPCS: 73140; 99283; J2004

== ENCOUNTER → 2025-09-02 13:53 | Outpatient (BNV) | payer MEDICAID, SELFPAY | PROVIDERS: PCP Nurse Practitioner Family; Visit Provider Radiology Diagnostic Radiology | DX: S61.211A Laceration without foreign body of left index finger without damage to nail, initial encounter (principal) | CPT/HCPCS: 73140 ==